=== PATIENT | female | born 1965 | race Caucasian/White ===

== ENCOUNTER 2022-06-26 16:00 | Outpatient (RCR) | payer OTHER, SELFPAY | END 2022-09-28 23:59 | disposition home or self-care (01) | PROVIDERS: PCP Internal Medicine; Visit Provider Physician Assistant | DX: M77.52 Other enthesopathy of left foot and ankle (principal); Z51.89 Encounter for other specified aftercare | CPT/HCPCS: 97110; 97140; 97161 ==

== ENCOUNTER 2023-01-19 10:19 | Emergency (ER) | payer OTHER, SELFPAY ==
[2023-01-19 10:34] VITALS: BP 126/63; PULSE 75; RESP 18; TEMP 36.3; O2SAT 98; BMI 28.3
[2023-01-19] MEDS: 0.9 % SODIUM CHLORIDE 1000 ml 1,000 ML IV ×2 (11:17→12:41)
--- NOTE | 2023-01-19 11:29 | ED.HA ---
HPI - Headache General Date Seen: 01/19/23 Chief Complaint: Headache/Migraine Stated Complaint: vomiting Time Seen by Provider: 01/19/23 11:10 Source: patient Mode of arrival: ambulatory Limitations: no limitations History of Present Illness HPI Narrative: Patient is a 57-year-old female with a history of migraines presenting to the emergency department for a migraine. She states it is worse in the right forehead. She states she has had migraines like this several times in the past this feels just like her previous migraines. No recent head injuries. States she has come in the past for these and has been given a migraine cocktail including Ativan, fluids, Reglan, Toradol, Benadryl, Zofran and that has always fixture symptoms. She states she has always needed all of the medications. Denies lightheadedness, dizziness, chest pain, shortness of breath, numbness, weakness. Does states she has been having some associated nausea. Symptoms started around 03:30 this morning. They have been consistent since then. Related Data Home Medications Medication Instructions Recorded Confirmed aspirin 81 mg tablet,delayed 81 mg PO DAILY 05/08/22 05/08/22 release diphenhydramine HCl 50 mg capsule 50 mg PO DAILY PRN 05/08/22 05/08/22 ibuprofen 200 mg capsule 600 mg PO Q6H PRN 05/08/22 05/08/22 [id number] C 250 tab PO 05/08/22 05/08/22 mg-herbal no.124 11.66 mg chewable tablet (Airborne Gummy) Previous Rx's Medication Instructions Recorded propranolol 80 mg capsule,24 80 mg PO QDAY #90 caps 05/08/22 hr,extended release sumatriptan succinate 100 mg tablet 100 mg PO ONCE PRN migraine 05/08/22 headache #9 tabs lorazepam 1 mg tablet 0.5 - 1 mg (0.5 - 1 x 1 mg) PO 09/07/22 QDAY PRN pain #10 tabs ondansetron 4 mg disintegrating 4 mg PO Q6H #20 tabs 01/19/23 tablet Allergies Allergy/AdvReac Type Severity Reaction Status Date / Time doxycycline Allergy Severe increased Verified 05/08/22 13:54 cranial pressure latex Allergy Mild Unknown Verified 05/08/22 13:54 metal Allergy Unknown Uncoded 02/27/23 13:54 Review of Systems Status of ROS: Reports: 10 or more systems reviewed and unremarkable except as noted in History and below [facility] Medical History Multiple thyroid nodules ?E04.2 - Nontoxic multinodular goiter (ICD-10) Surgical History S/P LASIK surgery of both eyes ?Z98.890 - Other specified postprocedural states (ICD-10) Status post hysteroscopic resection of uterine septum ?Z98.891 - History of uterine scar from previous surgery (ICD-10) History of right oophorectomy ?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, 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) History of bladder repair surgery ?Z98.890 - Other specified postprocedural states (ICD-10) History of tonsillectomy ?Z90.89 - Acquired absence of other organs (ICD-10) History of dilatation and curettage ?Z98.890 - Other specified postprocedural states (ICD-10) Family History Father Colonic polyp Other Breast cancer Social History Smoking Status: Never smoker Little interest or pleasure in doing things: not at all Feeling down, depressed, or hopeless: not at all Exam Narrative: Exam Narrative: Const: Well-nourished, Well-developed, in moderate distress Eyes: PERRL, no conjunctival injection, and symmetrical lids HENT: Atraumatic external nose and ears. Moist mucous membranes. Neck: Symmetric, trachea midline, No thyromegaly. CVS: RRR, No murmurs or gallops. Peripheral pulses 2+ and equal in all extremities RESP: Unlabored respiratory effort. Clear to auscultation bilaterally. GI: Nontender/Nondistended, No rebound or guarding. MSK:Extremities w/o deformity, Normal Active ROM Skin: Warm, Dry. No rashes or lesions. Neuro: Normal Muscle tone, No focal neurological deficits. Psych: Awake, Alert, & Oriented x3. Appropriate mood and affect. Const: Vital Signs, click to edit/add: Vital Signs - 24 hr 01/19/23 10:34 Temperature 97.3 F L Pulse Rate [Right Pulse Oximeter] 75 Respiratory Rate 18 Blood Pressure [Ri ght Upper Arm] 126/63 Pulse Oximetry 98 Oxygen Delivery Me thod Room Air Course Vital Signs Vital signs: Initial Vital Signs Temperature 97.3 F L 01/19/23 10:34 Temperature Source Temporal Artery Scan 01/19/23 10:34 Pulse Rate 75 01/19/23 10:34 Respiratory Rate 18 01/19/23 10:34 Blood Pressure 126/63 01/19/23 10:34 Blood Pressure Mean 84 01/19/23 10:34 Blood Pressure Position Sitting 01/19/23 10:34 Pulse Oximetry 98 01/19/23 10:34 Oxygen Delivery Method Room Air 01/19/23 10:34 Vital Signs Temperature 97.3 F L 01/19/23 10:34 Pulse Rate 75 01/19/23 10:34 Respiratory Rate 18 01/19/23 10:34 Blood Pressure 126/63 01/19/23 10:34 Pulse Oximetry 98 01/19/23 10:34 Oxygen Delivery Method Room Air 01/19/23 10:34 Temperature 97.3 F L 01/19/23 10:34 Pulse Rate 75 01/19/23 10:34 Respiratory Rate 18 01/19/23 10:34 Blood Pressure 126/63 01/19/23 10:34 Pulse Oximetry 98 01/19/23 10:34 Oxygen Delivery Method Room Air 01/19/23 10:34 Medications Administered Medications: Generic Name Dose Route Start Last Admin Trade Name Freq PRN Reason Stop Dose Admin Sodium Chloride 1,000 mls @ 1,000 mls/hr 01/19/23 12:45 01/19/23 12:41 0.9 % Sodium Chloride 1000 Ml IV 01/19/23 13:44 1,000 mls/hr .Q1H ROGER Administration Discontinued Medications Generic Name Dose Route Start Last Admin Trade Name Freq PRN Reason Stop Dose Admin Diphenhydramine HCl 25 mg 01/19/23 11:10 01/19/23 11:34 Diphenhydramine 50 Mg/Ml Inj IVP 01/19/23 11:11 25 mg ONCE ONE Administration Sodium Chloride 1,000 mls @ 1,000 mls/hr 01/19/23 11:15 01/19/23 12:41 0.9 % Sodium Chloride 1000 Ml IV 01/19/23 12:14 Infused .Q1H ROGER Infusion Ketorolac Tromethamine 15 mg 01/19/23 11:10 01/19/23 11:34 Ketorolac 15 Mg/Ml Inj IVP 01/19/23 11:11 15 mg ONCE ONE Administration Metoclopramide HCl 10 mg 01/19/23 11:10 01/19/23 11:34 Metoclopramide Hcl 5 Mg/Ml Inj IVP 01/19/23 11:11 10 mg ONCE ONE Administration Ondansetron HCl 4 mg 01/19/23 11:10 01/19/23 11:34 Ondansetron 2 Mg/Ml Inj IVP 01/19/23 11:11 4 mg ONCE ONE Administration MDM - Headache MDM Narrative Medical decision making narrative: Patient is a 57-year-old female presenting emergency department for migraine. Will give her a migraine cocktail. She specifically states the medicines that always helps with her migraines in these were given. The any extra compared to a typical migraine cocktail as the Ativan and Zofran and I am comfortable giving her these medicines also. Considering she routinely has migraines like this in the is nothing new I do not believe imaging is necessary. She is unlikely to be having brain bleed or tumor. Patient is feeling better after the medication. She requested another liter of fluids. This was given. She is feeling comfortable with discharge at this time. Discharge Plan Discharge Clinical Impression: Migraine Qualifiers: Migraine type: other Status migrainosus presence: without status migrainosus Intractability: not intractable Qualified Code(s): G43.809 - Other migraine, not intractable, without status migrainosus Patient Disposition: Home, Self-Care Condition: Improved Instructions: Migraine Headache (ED) Additional Instructions: Follow-up with your primary care provider but your migraines. Take your previously prescribed migraine medications. I also give prescription for Zofran. Prescriptions: New ondansetron 4 mg tablet,disintegrating 4 mg PO Q6H Qty: 20 0RF No Action aspirin 81 mg tablet,delayed release (DR/EC) 81 mg PO DAILY ibuprofen 200 mg capsule 600 mg PO Q6H PRN diphenhydramine HCl 50 mg capsule 50 mg PO DAILY PRN Airborne Gummy 250-11.66 mg tablet,chewable PO propranolol 80 mg capsule,extended release 24hr 80 mg PO QDAY Qty: 90 3RF sumatriptan succinate 100 mg tablet 100 mg PO ONCE PRN (Reason: migraine headache) Qty: 9 5RF lorazepam 1 mg tablet 0.5 - 1 mg PO QDAY PRN (Reason: pain) Qty: 10 3RF Follow Up/Referrals: Deidra Patino MD [Primary Care Provider] - Stand Alone Forms: [facility] Info Instructions
[2023-01-19] MEDS: diphenhydrAMINE 50 MG/ML inj 25 MG IVP (11:34)
[2023-01-19] MEDS: ONDANSETRON 2 MG/ML inj 4 MG IVP (11:34)
[2023-01-19] MEDS: KETOROLAC 15 MG/ML inj IVP (11:34)
[2023-01-19] MEDS: METOCLOPRAMIDE HCL 5 MG/ML INJ 10 MG IVP (11:34)
[2023-01-19 13:25] VITALS: BP 116/50; PULSE 69; RESP 18; O2SAT 100
== END 2023-01-19 13:50 | disposition home or self-care (01) ==
PROVIDERS: Emergency Provider Student in an Organized Health Care Education/Training Program; PCP Internal Medicine
DX: G43.909 Migraine, unspecified, not intractable, without status migrainosus (principal)
CPT/HCPCS: 96361; 96374; 96375; 99283; 99284; J1200; J1885; J2405; J2765; J7030

== ENCOUNTER 2023-07-19 16:44 | Outpatient (CLI) | payer OTHER, SELFPAY ==
--- OUTSIDE RECORDS SUMMARY | 2023-07-19 16:46 | XMS_ITS | Clinical Summary ---
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 9 tablet 11 06/21/2017 Active propranolol ER (INDERAL LA) 80 mg Cs24 Sustained-Release capsule Take 1 capsule by mouth once daily. 90 capsule 3 06/21/2017 Active LORazepam (ATIVAN) 1 mg tablet Take 1 tablet by mouth once daily if needed. 30 tablet 4 06/21/2017 Active aspirin (ECOTRIN) 81 mg enteric coated tablet Take 81 mg by mouth. A ctive ibuprofen (ADVIL; MOTRIN) 600 mg tablet Take 600 mg by mouth. Active aspirin-acetamino phen-caffeine (EXCEDRIN EX STR) 250-250-65 mg Take 1 Tablet by mouth every 6 hours if needed for Headache. Max acetaminophen dose: 4000mg in 24 hrs. 0 01/18/2022 Active durable medical equipment (DME)Indications: Plantar fasciitis of left foot PLANTAR FASCIITIS NIGHT SPLINT, MEDIUM, REF: [phone] 1 Each 01/18/2022 Active Active Problems No known active problems Encounters Date Type Department Care Team Description 06/25/2023 Lab Requisition [facility] [phone] Pricila Mitchell PA-C from Last 3 Months Social History Tobacco Use Types Packs/Day Years Used Date Smoking Tobacco: Never Smokeless Tobacco: Never Tobacco Cessation:Counseling Given: Yes Alcohol Use Standard Drinks/Week Comments No 0 (1 standard drink = 0.6 oz pur e alcohol) Sex and Gender Information Value Date Recorded Sex Assigned at Not on file Gender Identity Not on file Sexual Orientation Not on file Obstetrics History Last Filed Vital Signs Vital Sign Reading Time Taken Comments Blood Pressure 117/71 01/18/2022 3:53 PM MATHEMATICS TECHNICIAN Pulse 64 01/18/2022 3:53 PM MATHEMATICS TECHNICIAN Temperature 36.7 ??C (98 ??F) 05/10/2015 1:01 PM MATHEMATICS TECHNICIAN Respiratory Rate 14 04/30/2017 4:31 PM MATHEMATICS TECHNICIAN Oxygen Saturation 98% 01/18/2022 3:53 PM MATHEMATICS TECHNICIAN Inhaled Oxygen Concentration - - Weight 80.6 kg (177 lb 11.2 oz) 01/18/2022 3:53 PM MATHEMATICS TECHNICIAN Height 167.6 cm (5' 6) 04/30/2017 4:31 PM MATHEMATICS TECHNICIAN Body Mass Index 28.68 04/30/2017 4:31 PM MATHEMATICS TECHNICIAN Plan of Treatment Health Maintenance Due Date Last Done Comments Tdap 1977 Depression screening for age 12+ 1978 HIV for age 15-65 1981 Hepatitis C screening for age 18-79 02/08/1984 Tetanus booster 1986 Colonoscopy through age 75 2011 Lipids for age 45-75 2011 Mammogram for age 45-75 2011 Zoster (shingles) series for age 50+ (1 of 2) 02/08/2016 BMI (ht and wt on same day) for age 18+ 04/30/2018 04/30/2017 COVID-19 vaccine series ( season) 2022 Influenza for age 50-64 11/11/2023 Pap test for age 21-65 06/21/2026 , 06/22/2023, 02/19/2018, Additional history exists Pneumococcal series for age 6-64 Aged Out No longer eligible based on patient's age to complete this topic Procedures Procedure Name Priority Date/Time Associated Diagnosis Comments LAB TRACKING EVENT Routine 06/22/2023 12 :00 PM CDT [employer] THIN PREP PAP SCREEN IMAGED Routine 06/22/2023 12:00 PM CDT HPV THIN PREP Routine 06/22/2023 12:00 PM CDT from Last 3 Months Results * LAB TRACKING EVENT (06/22/2023 12:00 PM CDT) Other (Other) Client Collect / Unknown 06/22/2023 12:00 PM CDT 06/25/2023 3:47 PM CDT Pricila Mitchell PA-C LAB BILL ONLY [facility] [address] [place] [id number], * [employer] PLANNING MANAGER THIN PREP PAP SCREEN IMAGED (06/22/2023 12:00 PM CDT) Case Report Gynecologic Cytology Report ? Case: [id number] ? Authorizing Provider: ??Pricila Mitchell PA-C ?Collected: ? 06/22/2023 1200 ? Ordering Location: ? [facility] ?Received: ?06/26/2023 0840 ? First Screen: ?Arline Gage ? Specimen: ?[employer] MANAGER ThinPrep Vial Screening, Cervical ? 07/05/2023 5:57 PM CDT [facility] INTERPRETATION/ RESULT NEGATIVE FOR INTRAEPITHELIAL LESION OR MALIGNANCY (NIL) (none) 07/05/2023 5:57 PM CDT [facility] IMEN ADEQUACY Satisfactory for evaluation Endocervical cells cannot be evaluated due to severe atrophy 07/05/2023 5:57 PM CDT [facility] HPV REQUEST HPV and PAP 07/05/2023 5:57 PM CDT [facility] Date of LMP 07/05/2023 5:57 PM CDT [facility] Comment:unk Last Pap Date 02/19/2018 07/05/2023 5:57 PM CDT [facility] Last Pap Result NIL 5:57 PM CDT [facility] Menstrual Status Postmenopausal 07/05/2023 5:57 PM CDT [facility] Additional Information 07/05/2023 5:57 PM CDT [facility] Comment: Interpreted at [facility] - [address], [place] [address] Automated Review Successful 07/05/2023 5:57 PM CDT [facility] Comment:Specimen processed s uccessfully by automated multicraft operator device, ThinPrep Imaging System, [employer] ANCILLARY TESTING [employer] PLANNING MANAGER HPV Ordered, Please see separate report 07/05/2023 5:57 PM CDT [facility] Note The pap test is a screening technique, not a diagnostic procedure. It is used primarily to screen for squamous cancers and precursor lesions. Published studies have shown that it is subject to both false negative and false positive results. The pap test should not be used as the sole means to diagnose or exclude pre-malignant and malignant lesions. 07/05/2023 5:57 PM CDT [facility] Other (Cervical) 06/22/2023 12:00 PM CDT 06/26/2023 8:40 AM CDT June Clay Paula [facility] PATHOLOGY/CYTOLOGY Performing Organization Address [facility]/ZIP Co de Phone Number [facility] [address] [address], * HPV HIGH RISK (06/22/2023 12:00 PM CDT) TYPE 16 Negative Negative 06/27/2023 2:05 PM CDT [facility] TYPE 18 Negative Negative 06/27/2023 2:05 PM CDT [facility] OTHER HIGH RISK TYPES Negative Negative 06/27/2023 2:05 PM CDT [facility] Other (Cervical) 06/22/2023 12:00 PM CDT 06/26/2023 8:40 AM CDT Narrative [facility] - 06/27/2023 2:05 PM CDT HPV types 16, 18, 31, 33, 35, 39, 45, 51, 52, 56, 58, 59, 66 and 68 DNA were undetectable or below the pre-set threshold. Methodology: Erin Aristides 4800 HPV Test Pricila Clay Mitchell PA-C MICROBIOLOGY Performing Organization Address [facility] Co de Phone Number [facility] [address] [address], from Last 3 Months Care Teams Proof Machine Operator Relationship Specialty Start Date End Date Pcp, No . PCP - General 05/10/15
--- OUTSIDE RECORDS SUMMARY | 2023-07-19 16:47 | XMS_ITS | Continuity of Care Document ---
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 Role Phone Almas Acosta CRNA Unavailable Unavailable Allergies, Adverse Reactions, Alerts Substance Reaction Status Criticality latex Rash Active No Information Medications Medication Instructions Dosage Effective Dates (start - stop) Status Comments Aspir-81 mg tablet,delayed release take 1 tablet by oral route every day - Active sumatriptan 100 mg tablet take 1 tablet by oral route after onset of migraine; may repeat after 2 hours if headache returns,not to exceed 200mg in 24hrs 100 MG - Active FISH OIL (unknown strength) take 1 Tablet by Oral route every day Not Available - Active Excedrin Tension Headache 500 mg-65 mg tablet as needed - Active propranolol ER 120 mg capsule,24 hr,extended release take 1 capsule (120MG) by oral route every day 120 MG - Active Topamax 50 mg tablet take 1 tablet (50MG) by oral route 2 times every day 50 MG - Active GLUCOSAMINE SULFATE (unknown strength) take 1 by Oral route every day Not Available - Active multivitamin chewable tablet - Active lorazepam 1 mg tablet - Active Advil 200 mg tablet - Active DOCUSATE SODIUM (unknown strength) take 1 Capsule by oral route every day at bedtime as needed Not Available - No Longer Active hydrocortisone acetate 30 mg Rectal Suppository insert 1 suppository (30MG) by rectal route every day for 14 days - No Longer Active Imitrex 100 mg tablet take 1 tablet (100MG) by oral route once with fluids as early as possible after the onset of a migraine attack;may repeat after 2 hours if headache returns, not to exceed 200mg in 24hrs 100 MG - No Longer Active Metamucil Oral Powder take 1 Tablespoon by Oral route every day 1 Tablespoon No Longer Active diphenhydramine 50 mg capsule take 1 capsule (50MG) by oral route every 4 - 6 hours as needed 50 MG - No Longer Active Procedures Procedure Date Colonoscopy Flex; W/remov Les- 19 Level Iv-surg Path Gross/micro 19 Offic/outpt E&m Estab Mod-hi 2 13 Colonoscopy Flex; Dx (sep Pro) 13 Offic Cons New/estab Mod Advance Directives Directive Yes / No Effective Date File Name No Information Encounters Encounter Description Practice Location Reason(s) For Visit Diagnoses Date Provider Providers Copied on Encounter [facility] [address] [address], [place], [id number], [place] tel:[phone] [facility] No Information 9 Dave Coburn. [address], [place], [id number], [place]. tel:[phone] Referring Provider: Ryan Silvestre DO, [address], [place], [address] . tel:[phone] [facility] [address] [address], [place], [id number], [place] tel:[phone] [facility] Colorectal polypsHemorrhoids, externalHemorrhoid s, internalEncounter for screening for malignant neoplasm of colonBenign neoplasm of ascending colonBenign neoplasm of transverse colon 9 Nirmala Olivares. [address], [address], [place], [place], [id number], [place]. tel:[phone] Referring Provider: Referral Self, USE FOR SELF REFERRALS. [facility], [address] [address], [place], [place], [id number], [place] tel:[phone] [facility] Hemorrhoids Nos 3 Edstrfang Ndiaye. [address], [address], [place], [place], [id number], [place]. tel:[phone] Offic/outpt E&m Estab Mod-hi 2 [facility], [address] [address], [place], [id number], [place] tel:[phone] [facility] Blood in stool (chief complaint) Hematochezia/melen a 3 Edstrom HERI Ndiaye. [address], [address], [place], [place], [address], [place]. tel:[phone] Referring Provider: Shikha Romeo MD, [address] , [place], [address]. tel:[phone] [facility], [address] [address], [place], [place], [address], [place] tel:[phone] [facility] Hemorrhoids Nos 3 Cesar Jones. [address], [address], [place], [place], [address], [place]. tel:[phone] Referring Provider: Shikha Romeo MD, [address], [place], [address]. tel:[phone] [facility], [address] [address], [place], [address], [place] tel:[phone] [facility] Hemorrhoids NosAnal FissureHemorrhoids Nos 3 Garrett Quezada. [address], [facility] [address], [place], [place], [id number], [place]. tel:[phone] Referring Provider: Shikha Romeo MD, [address] [place], [address]. tel:[phone] Offic Cons New/estab Mod [facility], [address] [address], [place], [place], [id number], [place] tel:[phone] [facility] Rectal bleeding (chief complaint) Constipati on (chief complaint) Constipation UnspecifiedAnal FissureExternal Hemorrhoids W/o Complication Jun-2 3 Cesar Jones. [address] [facility] [address], [facility] [address], [place], [place], [address], [place]. tel:[phone] Referring Provider: Shikha Romeo MD, [address] [place], [address]. tel:[phone] Family History Family Member Type Diagnosis Age At Onset First degree family history Problem (finding) No history of Cancer, colon First degree family history Problem (finding) No history of Ulcerative Colitis First degree family history Problem (finding) Crohn's First degree family history Problem (finding) No Family history of No history of Colon Polyps Immunizations Vaccine Date Status Comments Fluzone Quad 6mo or older administered Note: [facility] bi-direct ional interface ; Source: Other Registry Fluzone Quad 6mo or older administered Note: [facility] bi-direct ional interface ; Source: Other Registry Fluzone Quad 6mo or older administered Note: [facility] bi-direct ional interface ; Source: Other Registry Fluzone Quad 6mo or older administered Note: [facility] bi-direct ional interface ; Source: Other Registry Fluzone Quad 6mo or older administered Note: [facility] bi-direct ional interface ; Source: Other Registry Influenza, seasonal, injecta ble, preservative free administered Note: [facility] bi-direct ional interface ; Source: Other Registry influenza virus vaccine, who le virus administered Note: [facility] bi-direct ional interface ; Source: Other Registry tetanus toxoid, reduced diphtheria toxoid, and acellular pertussis vaccine, adsorbed administered Note: [facility] b i-directional interface ; Source: Other Registry Payers Payer name Insurance type Covered constitution party ID Authormiguel woodall(s) [facility] [id number] Social History Type Description Quantity Date Captured Comments Sex Female Smoking Status No Information Chief Complaint And Reason For Visit No Information Reason For Referral Reason For Referral No Information History Of Present Illness Encounter Date Complaint History Of Prese nt Illness No Information Functional Status Date Functional Assessmen t No Information Instructions Date Instruction Additional Infor mation Colon Cancer Prevention Related to Colorectal polyps Colon Polyps Related to Color ectal polyps Hemorrhoids Related to Color ectal polyps High Fiber Diet Related to Hemor rhoids, external Assessments Type Assessment Date No Information Patient Care Teams Name Effective Dates (start - stop) Status Members No Information
--- NOTE | 2023-07-19 17:00 | US_ITS ---
Patient: SHAI LEONE Facility:?[facility] Patient ID:?[id number] Site Patient ID:?[id number]. Site :?[id number] Study:?US-OB Pelvis Pelvic Limited-07/19/2023 5:25:12 PM Ordering Physician:John June Final Report: Indication: Painless palpable lump located to the left of the labia. Technique: Ultrasound examination of the left medial intra labial region is performed with a high-resolution linear transducer. Comparison: None available Findings: The area of palpable abnormality identified by the patient is seen to be a normal-appearing lymph node measuring 1.0 x 0.5 x 0.8 centimeters. There is normal fatty hilar architecture with normal color Doppler flow in the hilum. Since this has a short axis diameter of less than 1.0 centimeters, this is not large enough to be described as lymphadenopathy. This may be a reactive lymph node. Impression: Palpable abnormality in the left medial intra labial region is a normal- appearing lymph node, probably reactive. Dictated by Kody Hernández MD @ 07/20/2023 8:15:37 PM Signed by:?Kody Hernández MD @07/20/2023 8:15:37 PM (Electronic Signature)
== END 2023-07-19 16:45 | disposition home or self-care (01) ==
LOC: US 16:45
PROVIDERS: PCP Internal Medicine; Visit Provider Physician Assistant
DX: N90.89 Other specified noninflammatory disorders of vulva and perineum (principal)
CPT/HCPCS: 76857

== ENCOUNTER 2023-10-01 14:18 | Outpatient (CLI) | payer OTHER, SELFPAY ==
--- OUTSIDE RECORDS SUMMARY | 2023-10-01 14:20 | XMS_ITS | Clinical Summary ---
Author Organization [employer] [facility] [employer] [facility] Address [place], [place] [address] Care Team Providers Care Custom Framing Specialist Name Role Phone Pcp, No Primary Care [...] foot PLANTAR FASCIITIS NIGHT SPLINT, MEDIUM, REF: [phone] 1 Each 01/18/2022 Active Active Problems No known active problems Social History Tobacco Use Types Packs/Day Years [...] Comments Blood Pressure 117/71 01/18/2022 3:53 PM LINE PALLETIZER Pulse 64 01/18/2022 3:53 PM LINE PALLETIZER Temperature 36.7 ??C (98 ??F) 05/10/2015 1:01 PM LINE PALLETIZER Respiratory Rate 14 04/30/2017 4:31 PM LINE PALLETIZER Oxygen Saturation 98% 01/18/2022 3:53 PM LINE PALLETIZER Inhaled Oxygen Concentration - - Weight 80.6 kg (177 lb 11.2 oz) 01/18/2022 3:53 PM LINE PALLETIZER Height 167.6 cm (5' 6) 04/30/2017 4:31 PM LINE PALLETIZER Body Mass Index 28.68 04/30/2017 4:31 PM LINE PALLETIZER Plan of Treatment Health Maintenance Due Date [...] age 18+ 04/30/2018 04/30/2017 COVID-19 vaccine series (2022-24 season) 2022 Influenza for age 50-64 11/11/2023 Pap test for age 21-65 06/21/2026 4, 06/22/2023, 02/19/2018, Additional history exists Pneumococcal series for age 6-64 Aged Out No longer eligible based on patient's age to complete this topic Procedures Procedure Name Priority Date/Time Associated Diagnosis Comments HPV THIN PREP Routine 06/22/2023 12:00 PM CDT from Last 3 Months or Most Recently Relevant to Health Maintenance Results * HPV HIGH RISK (06/22/2023 12:00 PM CDT) TYPE 16 Negative Negative 06/27/2023 2:05 PM CDT [facility] TYPE 18 Negative Negative 06/27/2023 2:05 PM CDT [facility] OTHER HIGH RISK TYPES Negative Negative 06/27/2023 2:05 PM CDT [facility] Other (Cervical) 06/22/2023 12:00 PM CDT 06/26/2023 8:40 AM CDT Narrative [facility] - 06/27/2023 2:05 PM CDT HPV types 16, 18, 31, 33, 35, 39, 45, 51, 52, 56, 58, 59, 66 and 68 DNA were undetectable or below the pre-set threshold. Methodology: Erin Aristides 4800 HPV Test June Paula LEVIN [facility] [address] [place] [id number], from Last 3 Months or Most Recently Relevant to Health Maintenance Care Teams Custom Framing Specialist Relationship Specialty Start Date End Date Pcp, No . PCP - General 05/10/15
--- NOTE | 2023-10-01 14:40 | CRLHL7_ITS ---
For Patients: As a result of the Cures Act, medical imaging exams and procedure reports are released immediately into your electronic medical record. You may view this report before your referring provider. If you have questions, please contact your health care provider. BILATERAL SCREENING MAMMOGRAM WITH COMPUTER-AIDED DETECTION AND TOMOSYNTHESIS TECHNIQUE: CC and MLO views were obtained. These mammographic images have been obtained using full-field digital technique. These mammographic images were interpreted with the benefit of computer-aided detection. Breast Tomosynthesis was used in this interpretation. COMPARISON FILM: 07/01/21, 04/02/20, 03/18/18. FINDINGS: There are scattered areas of fibroglandular density IMPRESSION: There is no radiographic evidence for malignancy. ASSESSMENT: BI-RADS Category 1: Negative RECOMMENDATION: Routine screening mammogram in 1 year. A lay language report of this examination will be provided to the patient. Benton Rivera M.D. Diagnostic Radiologist [email or web address]/[email or web address] Transcribed: 2:37 p.mSandy abreu/Dictated by: Benton Rivera MD @ 10/01/2023 2:46:00 PM (Electronically Signed)
--- NOTE | 2023-10-01 15:00 | CRLHL7_ITS ---
For Patients: As a result of the Cures Act, medical imaging exams and procedure reports are released immediately into your electronic medical record. You may view this report before your referring provider. If you have questions, please contact your health care provider. INDICATION: Thyroid nodules COMPARISON: 08/16/2020 TECHNIQUE: Samuels scale and color Doppler images were acquired of the thyroid gland. FINDINGS: Solid and cystic nodule right thyroid lobe measures 2.4 x 2.1 x 1.9 cm, TR 3, previously measuring 2.4 x 2.2 x 1.9 cm. Additional solid and cystic nodule right thyroid lobe inferior pole, TR 3, measures 3.0 x 1.7 x 2.1 cm, previously measuring 2.7 x 2.2 x 2.4 cm. Solid nodule right thyroid lobe 1.2 x 1.1 x 1.2 cm, TR 4. Small cystic nodule left thyroid lobe measures 5 x 2 x 3 millimeters, TR 1. Additional mostly cystic nodule left thyroid lobe measures 6 x 4 x 6 millimeters, TR 2. Hypoechoic nodule left thyroid lobe measures 8 x 4 x 6 millimeters, TR 4. Isthmus measures 3 millimeters. The right lobe measures 6.4 x 2.2 x 2.2 cm and the left lobe measures 5.1 x 1.6 x 1.6 cm in size. The color Doppler images demonstrate normal vascularity. There is no evidence of cervical lymphadenopathy or parathyroid mass. IMPRESSION: Similar right-sided thyroid nodules. Continued 1 year follow-up recommended. Dictated by Benton Rivera MD @ 10/02/2023 9:33:22 AM (Electronically Signed)
== END 2023-10-01 14:19 | disposition home or self-care (01) ==
LOC: MAMMO 14:18
PROVIDERS: PCP Internal Medicine; Visit Provider Surgery
DX: Z12.31 Encounter for screening mammogram for malignant neoplasm of breast (principal); E04.1 Nontoxic single thyroid nodule
CPT/HCPCS: 76536; 77063; 77067

== ENCOUNTER 2024-10-20 13:40 | Outpatient (CLI) | payer OTHER, SELFPAY ==
--- NOTE | 2024-10-20 14:00 | CRLHL7_ITS ---
For Patients: As a result of the Century Cures Act, medical imaging exams and procedure reports are released immediately into your electronic medical record. You may view this report before your referring provider. If you have questions, please contact your health care provider. INDICATION: Follow-up thyroid nodules COMPARISON: 09/01/2021 TECHNIQUE: Samuels scale and color Doppler images were acquired of the thyroid gland. FINDINGS: Solid and cystic nodule left thyroid lobe measures 6 x 4 x 6 millimeters, TR 3, previously measuring 6 x 4 x 6 millimeters. Isthmus measures 3.3 millimeters. Hyperechoic nodule right thyroid lobe measures 14 x 12 x 10 millimeters, TR 3, previously measuring 12 millimeters. Solid and cystic nodule right thyroid lobe measures 2.4 x 1.7 x 3.1 cm, TR 3, previously measuring 3.0 cm. Additional solid and cystic nodule right thyroid lobe measures 2.6 x 2.1 x 2.1 cm, TR 3, previously measuring 2.4 cm. The right lobe measures 6.3 x 2.6 x 2.3 cm and the left lobe measures 5.0 x 1.6 x 1.4 cm in size. The color Doppler images demonstrate normal vascularity. There is no evidence of cervical lymphadenopathy or parathyroid mass. IMPRESSION: Stable right-sided thyroid nodules. Sub cm nodule left thyroid lobe is also unchanged. Dictated by Benton Rivera MD @ 10/20/2024 4:11:10 PM (Electronically Signed)
== END 2024-10-20 13:41 | disposition home or self-care (01) ==
LOC: US 13:41
PROVIDERS: PCP Internal Medicine; Visit Provider Surgery
DX: E04.1 Nontoxic single thyroid nodule (principal)
CPT/HCPCS: 76536

== ENCOUNTER 2025-02-26 06:31 | Emergency (ER) | payer OTHER, SELFPAY ==
--- OUTSIDE RECORDS SUMMARY | 2025-02-26 06:33 | XMS_ITS | Clinical Summary ---
Author Organization [employer] [facility] [employer] [facility] Address [address] [place] [id number] Care Team Providers Care Imaging Assistant Name Role Phone Pcp, No Primary Care Provider Unavailabl e Allergies Active AllergyReactionsCriticalityNoted DateCommentsDoxycyclineOther - Describe In Comment Field01/18/2022 Cranial pressure, swelling LatexContact Tjfowoeuuf60/19/2018Unlisted Allergen (Include Detail In Comments) Itching,Edema01/18/2022 All metal / jewelry Medications MedicationSigDispense QuantityRefillsLast FilledStart DateEnd DateStatus SUMAtriptan (IMITREX) 100 mg tablet Take 1 tablet by mouth one time if needed for migraine. 9 tablet 11005/28/2018 3:48 PM CDT06/21/2017Active propranolol ER (INDERAL LA) 80 mg Cs24 Sustained-Release capsule Take 1 capsule by mouth once daily. 90 capsule 12:22 PM CDT06/21/2017Active LORazepam (ATIVAN) 1 mg tablet Take 1 tablet by mouth once daily if needed. 30 tablet 4:34 PM CDT06/21/2017Active aspirin (ECOTRIN) 81 mg enteric coated tablet Take 81 mg by mouth.Active ibuprofen (ADVIL; MOTRIN) 600 mg tablet Take 600 mg by mouth.Active nwyjaef-ibtabfjzfbckm-esmwruxg (EXCEDRIN EX STR) 250-250-65 mg Take 1 Tablet by mouth every 6 hours if needed for Headache. Max acetaminophen dose: 4000mg in 24 hrs.ctive durable medical equipment (DME) Indications:Plantar fasciitis of left footPLANTAR FASCIITIS NIGHT SPLINT, MEDIUM, REF: [phone] 1 Each 11/09/2022Active Active Problems No known active problems Social History Tobacco UseTypesPacks/DayYears UsedDateSmoking Tobacco: NeverSmokeless Tobacco: Never Tobacco Cessation:Counseling Given: Yes Alcohol UseStandard Drinks/WeekCommentsNo0 (1 standard drink = 0.6 oz pure alcohol)CommentsNoSex and Gender InformationValueDate RecordedSex Assigned at BirthNot on fileLegal YbiMuxpbk23/19/2013 3:59 PM CSTGender Identity Not on fileSexual OrientationNot on file Last Filed Vital Signs Vital SignReadingTime TakenCommentsBlood Nkjttqaz356/7101/18/2022 3:53 PM UNIT MANAGER Hjsfq647401/18/2022 3:53 PM TCDMdayjjsxwko01.7 ??C (98 ??F)05/10/2015 1:01 PM UNIT MANAGER Respiratory Gcik561304/30/2017 4:31 PM CSTOxygen Elybvspdyh45%01/18/2022 3:53 PM CSTInhaled Oxygen Concentration--Cwsktc48.6 kg (177 lb 11.2 oz)01/18/2022 3:53 PM VNXBimbnb845.6 cm (5' 6)04/30/2017 4:31 PM CSTBody Mass Index28.68004/30/2017 4:31 PM UNIT MANAGER Plan of Treatment Health MaintenanceDue DateLast DoneCommentsTetanus ocuoboj4502/07/1977Depression screening for age 12+1978HIV for age 15-Hepatitis C screening for age 18-Hepatitis B series for 19+ (1 of 3 - 19+ 3-dose series) 1985Colonoscopy through age Lipids for age 45- Mammogram for age 45-Pneumococcal series for age 50+ (1 of 1 - PCV) 02/08/2016Zoster (shingles) series for age 50+ (1 of 2)02/08/2016BMI (ht and wt on same day) for age 18+COVID-19 vaccine series (1 - 2024-26 season)2024Influenza Vaccine (#1)2024Pap test for age 21-65 704/02/2024, 06/22/2023, 02/19/2018, Additional history existsRSV vaccine for adults or (1 - 1-dose 75+ series)2041 Procedures Procedure NamePriorityDate/TimeAssociated DiagnosisCommentsHPV HIGH RISKRoutine 06/22/2023 12:00 PM CDT from Last 3 Months or Most Recently Relevant to Health Maintenance Results * HPV HIGH RISK (06/22/2023 12:00 PM CDT)ComponentValueRef RangeTest Method Analysis TimePerformed AtPathologist SignatureTYPE 16NegativeNegative 06/27/2023 2:05 PM CDTAL[facility]ORYCENTRAL LABORATORYTYPE 18 WcteutisBfljtlhq31/17/2024 2:05 PM CDJOHN [facility]. [facility]ENN[facility]CENTRAL LABORATORYOTHER HIGH RISK QQYTGZrqbtrydIozdiqxt69/17/2024 2:05 PM [facility] LABORATORYSpecimen (Source)Anatomical Location / LateralityCollection Method / VolumeCollection TimeReceived TimeOther (Cervical)06/22/2023 12:00 PM CDT06/26/2023 8:40 AM CDT Narrative [facility] 06/27/2023 2:05 PM CDT HPV types 16, 18, 31, 33, 35, 39, 45, 51, 52, 56, 58, 59, 66 and 68 DNA were undetectable or below the pre-set threshold. Methodology: Erin Aristides 4800 HPV Test Authorizing ProviderResult TypeResult StatusApril Clay LIRIANO-CMICROBIOLOGY Final ResultPerforming OrganizationAddressCity/State/ZIP CodePhone Number [facility] [address] [place] [address], [place] from Last 3 Months or Most Recently Relevant to Health Maintenance Care Teams Team MemberRelationshipSpecialtyStart DateEnd Date Pcp, No PCP - General05/10/15
[2025-02-26 06:41] VITALS: BP 134/90; PULSE 61; RESP 16; TEMP 36.2; O2SAT 99
--- NOTE | 2025-02-26 07:07 | ED.HA ---
HPI - Headache General Date Seen: 02/26/25 Chief Complaint: Headache/Migraine Stated Complaint: Migraine Time Seen by Provider: 02/26/25 06:49 Source: patient and family Mode of arrival: ambulatory Limitations: no limitations History of Present Illness HPI Narrative: Patient is a 60-year-old female who was brought in by her with a migraine that began at 4:00 a.m.. This is no different than her previous migraines. Normally she takes lorazepam, Zofran, ibuprofen. This morning she began vomiting and opted to come in. She generally has about one ER visit per year. She has some photophobia and phonophobia. She took Imitrex 100 mg orally with no improvement. Related Data Home Medications ?Medication ?Instructions ?Recorded ?Confirmed aspirin 81 mg tablet,delayed 81 mg PO DAILY 05/08/22 12/22/24 release diphenhydramine HCl 50 mg capsule 50 mg PO DAILY PRN 05/08/22 12/22/24 ibuprofen 200 mg capsule 600 mg PO Q6H PRN 05/08/22 12/22/24 cholecalciferol (vitamin D3) 50 50 mcg PO QDAY 05/28/23 12/22/24 mcg (2,000 unit) capsule magnesium 250 mg tablet 250 mg PO QHS 05/28/23 12/22/24 ondansetron 4 mg disintegrating 4 mg PO Q6H PRN 05/28/23 12/22/24 tablet zoyjjfaz-ovgeuxdi-dyk C 250 1 tab PO .QD 02/05/24 12/22/24 mg-herbal no.124 11.66 mg chewable tablet (Airborne Gummy) metronidazole 0.75 % topical cream applic topical BID 07/14/24 12/22/24 triamcinolone acetonide 0.1 % applic topical 07/14/24 12/22/24 topical cream polymyxin B sulfate 10,000 1 drp ophthalmic (eye) QID 01/06/25 01/06/25 unit-trimethoprim 1 mg/mL eye drops Previous Rx's ?Medication ?Instructions ?Recorded sumatriptan succinate 100 mg tablet 100 mg PO ONCE PRN migraine 07/14/24 headache #9 tabs lorazepam 1 mg tablet 0.5 - 1 mg (0.5 - 1 x 1 mg) PO 12/22/24 QDAY PRN pain #10 tabs Allergies Allergy/AdvReac Type Severity Reaction Status Date / Time doxycycline Allergy Severe increased Verified 01/06/25 16:49 cranial pressure erythromycin base Allergy Severe Swelling Verified 01/06/25 16:49 of the Eye cat dander Allergy Intermediate rash Verified 01/06/25 16:49 latex Allergy Mild Unknown Verified 01/06/25 16:49 adhesive AdvReac Mild Rash Verified 01/06/25 16:49 Hayfever Allergy Intermediate Uncoded 01/06/25 16:49 metal Allergy Unknown Uncoded 01/06/25 16:49 Review of Systems Narrative: Review of systems is outlined above otherwise noted to be negative. 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) History of bladder repair surgery ?Z98.890 - Other specified postprocedural states (ICD-10) History of tonsillectomy ?Z90.89 - Acquired absence of other organs (ICD-10) History of dilatation and curettage ?Z98.890 - Other specified postprocedural states (ICD-10) Family History Father Colonic polyp Other Breast cancer Social History What is your current living situation?: I presently have a place to live Problems where you live: no known problems In the past 12 months, utilities in danger of being shut off: no In past 12 months, lack of transportation kept you from medical appts, meetings, work, or getting things needed for daily living: no In the past 12 mos, have been you worried that your food would run out before you had money to buy more?: never true In the past 12 mos, the food you bought just didn't last and you didn't have money to buy more?: never true Smoking Status: Never smoker How often does anyone, including family, friends and others, physically hurt you: never How often does anyone, including family, friends and others, insult or talk down to you: never How often does anyone, including family, friends and others, threaten you with harm: never How often does anyone, including family, friends and others, scream or curse at you: never Exam Narrative: Exam Narrative: Objective: Vitals noted. Patient is lying in a dark room in obvious discomfort. Lungs are clear. Heart is regular rate rhythm without murmur. Neurologic exam is nonfocal. Cognitively she is doing well. Const: Vital Signs, click to edit/add: Vital Signs - 24 hr 02/26/25 06:41 02/26/25 07:28 Temperature 97.2 F L Pulse Rate [Pulse Oximeter] 61 60 Respiratory Rate 16 16 Blood Pressure [Ri ght Upper Arm] 134/90 H Pulse Oximetry 99 98 Oxygen Delivery Me thod Room Air Room Air Course Course ED Course: Patient seen and examined. This is a typical migraine for her. She generally has about one ER visit per year. She prefers a cocktail of lorazepam, Benadryl, Reglan, Zofran, fluids, Toradol. IV is established and she is given a L of normal saline along with Toradol 30 mg IV, Zofran 4 mg IV, Reglan 10 mg IV, lorazepam 1 mg IV, Benadryl 25 mg IV. This resulted in good improvement of her headache and she is discharged home in the care of her . Vital Signs Vital signs: Initial Vital Signs Temperature 97.2 F L 02/26/25 06:41 Temperature Source Temporal Artery Scan 02/26/25 06:41 Pulse Rate 61 02/26/25 06:41 Respiratory Rate 16 02/26/25 06:41 Blood Pressure 134/90 H 02/26/25 06:41 Blood Pressure Mean 104 02/26/25 06:41 Blood Pressure Position Semi-Fowlers 02/26/25 06:41 Pulse Oximetry 99 02/26/25 06:41 Oxygen Delivery Method Room Air 02/26/25 06:41 Vital Signs Temperature 97.2 F L 02/26/25 06:41 Pulse Rate 61 02/26/25 06:41 Respiratory Rate 16 02/26/25 06:41 Blood Pressure 134/90 H 02/26/25 06:41 Pulse Oximetry 99 02/26/25 06:41 Oxygen Delivery Method Room Air 02/26/25 06:41 Temperature 97.2 F L 02/26/25 06:41 Pulse Rate 60 02/26/25 07:28 Respiratory Rate 16 02/26/25 07:28 Blood Pressure 134/90 H 02/26/25 06:41 Pulse Oximetry 98 02/26/25 07:28 Oxygen Delivery Method Room Air 02/26/25 07:28 Medications Administered Medications: Generic Name Dose Route Start Last Admin Trade Name Freq PRN Reason Stop Dose Admin Sodium Chloride 1,000 mls @ 1,000 mls/hr 02/26/25 06:58 02/26/25 07:21 0.9 % Sodium Chloride 1000 Ml IV 02/26/25 07:57 1,000 mls/hr .Q1H ONE Administration Ondansetron HCl 4 mg 02/26/25 06:57 02/26/25 07:15 Ondansetron 2 Mg/Ml Inj IVP 4 mg ONCE PRN Administration Discontinued Medications Generic Name Dose Route Start Last Admin Trade Name Freq PRN Reason Stop Dose Admin Diphenhydramine HCl 25 mg 02/26/25 06:57 02/26/25 07:19 Diphenhydramine 50 Mg/Ml Inj IVP 02/26/25 06:58 25 mg ONCE ONE Administration Ketorolac Tromethamine 30 mg 02/26/25 06:57 02/26/25 07:16 Ketorolac 30 Mg/Ml Inj IVP 02/26/25 06:58 30 mg ONCE ONE Administration Lorazepam 1 mg 02/26/25 07:11 02/26/25 07:24 Lorazepam 2 Mg/Ml Inj IVP 02/26/25 07:12 1 mg ONCE ONE Administration Metoclopramide HCl 10 mg 02/26/25 06:57 02/26/25 07:21 Metoclopramide Hcl 5 Mg/Ml Inj IVP 02/26/25 06:58 Not Given ONCE ONE Discharge Plan Discharge Clinical Impression: Migraine Patient Disposition: Home, Self-Care Condition: Improved Additional Instructions: Resume current migraine plan and follow up with Dr Patino as needed. Prescriptions: No Action ondansetron 4 mg tablet,disintegrating 4 mg PO Q6H PRN magnesium 250 mg tablet 250 mg PO QHS cholecalciferol (vitamin D3) 50 mcg (2,000 unit) capsule 50 mcg PO QDAY metronidazole 0.75 % cream topical BID triamcinolone acetonide 0.1 % cream topical sumatriptan succinate 100 mg tablet 100 mg PO ONCE PRN (Reason: migraine headache) Qty: 9 12RF polymyxin B sulf-trimethoprim 10,000 unit- 1 mg/mL drops 1 drp ophthalmic (eye) QID aspirin 81 mg tablet,delayed release (DR/EC) 81 mg PO DAILY ibuprofen 200 mg capsule 600 mg PO Q6H PRN diphenhydramine HCl 50 mg capsule 50 mg PO DAILY PRN Airborne Gummy 250-11.66 mg tablet,chewable 1 tab PO .QD lorazepam 1 mg tablet 0.5 - 1 mg PO QDAY PRN (Reason: pain) Qty: 10 3RF Follow Up/Referrals: Deidra Patino MD [Primary Care Provider, Internal Medicine] Stand Alone Forms: [facility] Info Instructions
[2025-02-26] MEDS: ONDANSETRON 2 MG/ML inj 4 MG IVP (07:15)
[2025-02-26 07:28] VITALS: PULSE 60; RESP 16; O2SAT 98
[2025-02-26 07:46] VITALS: PULSE 60; O2SAT 98
[2025-02-26 08:08] VITALS: BP 116/68
== END 2025-02-26 08:18 | disposition home or self-care (01) ==
PROVIDERS: Emergency Provider Family Medicine; PCP Internal Medicine
DX: G43.909 Migraine, unspecified, not intractable, without status migrainosus (principal)
CPT/HCPCS: 96361; 96374; 96375; 99282; 99284; 99285; J1200; J1885; J2060; J2405; J7030